=== PATIENT | male | born 1980 | race Hispanic/Latino ===

== ENCOUNTER 2023-09-18 18:31 | Emergency (ER) | payer OTHER ==
[~2023-09-18] VITALS: Ht 177.8 cm; Wt 95.0 kg
[2023-09-18 18:30] VITALS: BP 161/100; PULSE 124; RESP 18; TEMP 99.1; O2SAT 91
[2023-09-18 18:31] VITALS: BP_SYST 161; RESP 18
[2023-09-18] MEDS: TYLENOL PO STA (18:52)
[2023-09-18 19:02] VITALS: BP 158/89; PULSE 101; RESP 18; O2SAT 95
[2023-09-18 19:32] VITALS: BP 141/100; PULSE 100; RESP 18; O2SAT 98
[2023-09-18 20:03] VITALS: BP 157/101; PULSE 99; RESP 18; O2SAT 96
[2023-09-18] MEDS ORDERED: BOOSTRIX IM ONE (20:21)
[2023-09-18] MEDS: BOOSTRIX IM ONE (20:23)
== END 2023-09-18 20:28 | disposition home or self-care (01) ==
LOC: ER 18:31
DX: S00.83XA Contusion of other part of head, initial encounter (principal); Y04.2XXA Assault by strike against or bumped into by another person, initial encounter; Y93.89 Activity, other specified; Y92.89 Other specified places as the place of occurrence of the external cause; Y99.8 Other external cause status
CPT/HCPCS: 70110; 90471; 90715; 99283